=== PATIENT | female | born 1995 | race Two or more races ===

== ENCOUNTER 2020-03-15 14:07 | Emergency (ER) | payer OTHER, SELFPAY ==
[2020-03-15 14:14] VITALS: BP 104/70; PULSE 65; RESP 16; TEMP 36.7; O2SAT 99; BMI 24.2
--- NOTE | 2020-03-15 14:36 | XR_ITS ---
EXAMINATION: XR THORACIC SPINE XR LUMBAR SPINE XR SACRUM AND COCCYX CLINICAL INFORMATION: s/p fall down steps c back/coccyx pain COMPARISON: None. TECHNIQUE: AP, lateral, and swimmer's views of the thoracic spine and AP and lateral views of the lumbar spine and lateral view of the lumbosacral junction. 3 views of the sacrum and coccyx FINDINGS: Thoracic: Vertebral body heights are normal. Alignment is anatomic without spondylolisthesis. Intervertebral disc heights are well-maintained. No degenerative disc disease. Paraspinal soft tissues are unremarkable. No osseous lesions are identified. Lumbar: Vertebral body heights are normal. No fracture or spondylolisthesis. Intervertebral disc heights are maintained without significant degenerative disc disease. Bone mineralization is normal. Soft tissues are unremarkable. Sacrum and coccyx: As seen on the AP view, there is significant rightward displacement of the coccyx relative to midline (1.3 cm). A subtle cortical break is suspected in this region as seen on the lateral view. SI joints appear well-preserved. No sacroiliitis. Sacrum is intact. Imaged portions of the pubic symphysis and hips appear unremarkable. XR/XR lumbar spine 2-3V IMPRESSION: Rightward displacement of the coccyx with a possible transverse fracture of the proximal coccygeal segment. Anatomic variation in coccygeal orientation is possible, but felt to be less likely. Recommend correlation for point tenderness at the coccyx. No acute fracture or malalignment in the thoracic and lumbar spine
--- NOTE | 2020-03-15 14:36 | XR_ITS ---
EXAMINATION: XR THORACIC SPINE XR LUMBAR SPINE XR SACRUM AND COCCYX CLINICAL INFORMATION: s/p fall down steps c back/coccyx pain COMPARISON: None. TECHNIQUE: AP, lateral, and swimmer's views of the thoracic spine and AP and lateral views of the lumbar spine and lateral view of the lumbosacral junction. 3 views of the sacrum and coccyx FINDINGS: Thoracic: Vertebral body heights are normal. Alignment is anatomic without spondylolisthesis. Intervertebral disc heights are well-maintained. No degenerative disc disease. Paraspinal soft tissues are unremarkable. No osseous lesions are identified. Lumbar: Vertebral body heights are normal. No fracture or spondylolisthesis. Intervertebral disc heights are maintained without significant degenerative disc disease. Bone mineralization is normal. Soft tissues are unremarkable. Sacrum and coccyx: As seen on the AP view, there is significant rightward displacement of the coccyx relative to midline (1.3 cm). A subtle cortical break is suspected in this region as seen on the lateral view. SI joints appear well-preserved. No sacroiliitis. Sacrum is intact. Imaged portions of the pubic symphysis and hips appear unremarkable. XR/XR thoracic spine 3V IMPRESSION: Rightward displacement of the coccyx with a possible transverse fracture of the proximal coccygeal segment. Anatomic variation in coccygeal orientation is possible, but felt to be less likely. Recommend correlation for point tenderness at the coccyx. No acute fracture or malalignment in the thoracic and lumbar spine
--- NOTE | 2020-03-15 14:36 | XR_ITS ---
EXAMINATION: XR THORACIC SPINE XR LUMBAR SPINE XR SACRUM AND COCCYX CLINICAL INFORMATION: s/p fall down steps c back/coccyx pain COMPARISON: None. TECHNIQUE: AP, lateral, and swimmer's views of the thoracic spine and AP and lateral views of the lumbar spine and lateral view of the lumbosacral junction. 3 views of the sacrum and coccyx FINDINGS: Thoracic: Vertebral body heights are normal. Alignment is anatomic without spondylolisthesis. Intervertebral disc heights are well-maintained. No degenerative disc disease. Paraspinal soft tissues are unremarkable. No osseous lesions are identified. Lumbar: Vertebral body heights are normal. No fracture or spondylolisthesis. Intervertebral disc heights are maintained without significant degenerative disc disease. Bone mineralization is normal. Soft tissues are unremarkable. Sacrum and coccyx: As seen on the AP view, there is significant rightward displacement of the coccyx relative to midline (1.3 cm). A subtle cortical break is suspected in this region as seen on the lateral view. SI joints appear well-preserved. No sacroiliitis. Sacrum is intact. Imaged portions of the pubic symphysis and hips appear unremarkable. XR/XR sacrum coccyx min 2V IMPRESSION: Rightward displacement of the coccyx with a possible transverse fracture of the proximal coccygeal segment. Anatomic variation in coccygeal orientation is possible, but felt to be less likely. Recommend correlation for point tenderness at the coccyx. No acute fracture or malalignment in the thoracic and lumbar spine
--- NOTE | 2020-03-15 15:08 | ED_ITS ---
HPI - Back Pain/Injury General Chief Complaint: General Medical Stated Complaint: fall, back pain Time Seen by Provider: 03/15/20 14:30 Source: patient Mode of arrival: ambulatory Limitations: no limitations History of Present Illness HPI Narrative: 24yoF c No Sig PMHx presenting to the ED c c/o lower back/coccyx pain after she fell down an entire flight of steps last night worse pain today. Reports the pain is worse with walking, and attempting to push for bowel movement therefore she has been unable to have a bowel movement today. Denies head injury or loss of consciousness. Denies being on any blood thinners. Denies any other injuries complaints or concerns at this time. Related Data Previous Rx's Medication Instructions Recorded acetaminophen [Tylenol Extra 1,000 mg PO QID PRN #14 tab 03/15/20 Strength] cyclobenzaprine 10 mg PO TID PRN #10 tab 03/15/20 docusate sodium [Colace] 100 mg PO BID #30 cap 03/15/20 ibuprofen 800 mg PO Q8H PRN #14 tab 03/15/20 oxycodone 5 mg PO BID PRN #10 tab 03/15/20 Allergies Allergy/AdvReac Type Severity Reaction Status Date / Time No Known Allergies Allergy Verified 03/15/20 14:14 Review of Systems Review of Systems: Constitutional : + trauma, No Weight loss, No Fever, No Chills, Cardiovascular : No Chest Pain, No SOB Respiratory : No Cough Gastrointestinal : No Nausea, No Vomiting, No Diarrhea, No abdominal Pain, No Hematochezia, No Melena Genitourinary : No Dysuria, No Urinary Frequency, No Hematuria, No Urinary or Bowel Incontinence/retention Musculoskeletal : + Back/coccyx pain, No neck pain, No joint stiffness, No joint swelling Skin : No Skin Lesions, No rash or signs of infection Neuro : No Weakness, No radiation, No Numbness, No Paresthesias, No headache, no loss of bowel or bladder incontinence, no saddle anesthesia, Focal weakness, No radiation Denies history of IV drug usage. Yes all other systems are reviewed and are negative [facility] Past Medical History Attestation statement: The following information was validated with the patient. Social History Social History Smoked in Last 30 Days: No Use of substances other than those prescribed or required for medical reasons: No Advance Directives: No Advance Directives Information Provided: No Physical Exam Vital Signs: Vital Signs: Last Vital Signs Temp 98.0 F 03/15/20 14:14 Pulse 65 03/15/20 14:14 Resp 16 03/15/20 14:14 BP 104/70 03/15/20 14:14 Pulse Ox 99 03/15/20 14:14 Body Mass Index 24.2 vital signs have been reviewed as normal and appeared to be correct. Blood pressure normal. Heart rate normal. Respiration rate normal. Temperature normal. Oxygen saturation normal. Appearance: Alert. Oriented X3. No acute distress. Head: Normal external exam. Normocephalic. Atraumatic. No Breaux signs noted. No raccoon eyes noted Eyes: PERRLA. EOMI. Conjunctiva and sclera normal. Eyelids normal. ENT: Pharynx normal. Uvula midline. Moist mucous membranes. Neck: Normal inspection. Neck supple. FROM. No adenopathy. Thyroid Normal. No meningeal signs. No neck mass noted. CVS: Normal heart rate and rhythm. Heart sound normal. No murmurs noted. Pulses normal throughout. Respiratory: No respiratory distress. Painless inspiration. Breath sounds normal. No wheezes/rales/rhonchi noted. Chest nontender. No accessory muscle usage noted or decreased air movement noted. Back: Full range of motion noted. No obvious deformities, or edema. Mild para- spinal muscular and mid spinal tenderness from thoracic to lumbar region to coccyx region. Full ROM in back and lower extremities. 5/5 strength hip extension/flexion, abduction, adduction. Mild Lumbar pain with hip flexion against resistance. Straight leg raise test negative on right; Straight leg raise test negative on left; Reflexes normal ankle and knee bilaterally; EHL motor strength normal bilaterally. No rashes/lesion/induration/fluctuance/ecchymosis/abrasion/lacerations or signs of infection noted. Skin: Skin warm and dry. Normal skin color. Normal skin turgor. No rashes/lesions/lacerations noted. Extremities: Extremities exhibit normal range of motion. Extremities nontender. Neuro: Oriented X 3. No motor deficit. No sensory deficit. Reflexes normal. Course Course Course Narrative: Pt c likely muscular pain, but could be fx due to recent fall/trauma. Neuro exam shows no deficits. Not c/w AAA/epidural abscess/dissection. No high risk Hx (Incont, fever, immunosupp, recent surgery/LP, coag, signif trauma, wt loss, puls mass, hx/o Ca, TB, or IVDU) to warrant MRI/CT today. Not c/w Pyelo/UTI/kidney stone. Not cauda equina syndrome. Will obtain an x-ray of thoracic/lumbar and coccyx region if negative will DC c meds and f/u. Patient understands agrees the plan. MDM - Back Pain/Injury Medical Records Attestation: I reviewed the patient's medical records. Lab Data Attestation: I reviewed the patient's lab results. Imaging Data Thoracic/lumbar/coccyx: Attestation: I personally reviewed and interpreted this imaging study as follows: Radiologist's impression: FINDINGS: Thoracic: Vertebral body heights are normal. Alignment is anatomic without spondylolisthesis. Intervertebral disc heights are well-maintained. No degenerative disc disease. Paraspinal soft tissues are unremarkable. No osseous lesions are identified. Lumbar: Vertebral body heights are normal. No fracture or spondylolisthesis. Intervertebral disc heights are maintained without significant degenerative disc disease. Bone mineralization is normal. Soft tissues are unremarkable. Sacrum and coccyx: As seen on the AP view, there is significant rightward displacement of the coccyx relative to midline (1.3 cm). A subtle cortical break is suspected in this region as seen on the lateral view. SI joints appear well-preserved. No sacroiliitis. Sacrum is intact. Imaged portions of the pubic symphysis and hips appear unremarkable. XR/XR thoracic spine 3V IMPRESSION: Rightward displacement of the coccyx with a possible transverse fracture of the proximal coccygeal segment. Anatomic variation in coccygeal orientation is possible, but felt to be less likely. Recommend correlation for point tenderness at the coccyx. No acute fracture or malalignment in the thoracic and lumbar spine Discharge Plan Discharge Clinical Impression: Fall Qualifiers: Encounter type: initial encounter Qualified Code(s): W19.XXXA - Unspecified fall, initial encounter Closed fracture of coccyx Qualifiers: Encounter type: initial encounter Qualified Code(s): S32.2XXA - Fracture of coccyx, initial encounter for closed fracture Patient Disposition: Home, Self-Care Instructions: Thoracolumbar Fracture (ED) Prescriptions: New cyclobenzaprine 10 mg tablet 10 mg PO TID PRN (Reason: muscle spasm) Qty: 10 RF: 0 ibuprofen 800 mg tablet 800 mg PO Q8H PRN (Reason: pain) Qty: 14 RF: 0 acetaminophen [Tylenol Extra Strength] 500 mg tablet 1,000 mg PO QID PRN (Reason: fever or pain) Qty: 14 RF: 0 oxycodone 5 mg tablet 5 mg PO BID PRN (Reason: pain) Qty: 10 RF: 0 docusate sodium [Colace] 100 mg capsule 100 mg PO BID Qty: 30 RF: 0 Referrals: Norma Cobb MD [Physician] - 1 week
== END 2020-03-15 15:52 | disposition home or self-care (01) ==
PROVIDERS: Emergency Provider Emergency Medicine
DX: S32.2XXA Fracture of coccyx, initial encounter for closed fracture (principal); W10.8XXA Fall (on) (from) other stairs and steps, initial encounter; Y93.89 Activity, other specified; Y92.018 Other place in single-family (private) house as the place of occurrence of the external cause; Y99.9 Unspecified external cause status
CPT/HCPCS: 72072; 72100; 72220; 99283

== ENCOUNTER 2020-07-01 08:42 | Outpatient (REF) | payer OTHER, SELFPAY | END 2020-07-01 08:43 | disposition home or self-care (01) | LOC: HO.LAB 08:42 | PROVIDERS: Visit Provider Internal Medicine | DX: Z20.822 Contact with and (suspected) exposure to COVID-19 (principal) | CPT/HCPCS: C9803; U0003; U0005 ==